=== PATIENT | female | born 1960 | race Caucasian/White ===

== ENCOUNTER 2021-06-02 05:13 | Day surgery (SDC) | payer OTHER ==
[2021-06-01 08:22] VITALS: BMI 32.1
[2021-06-02 13:50] VITALS: TEMP 98.5
[2021-06-02 14:08] VITALS: PULSE 55
[2021-06-02 14:43] VITALS: BP 103/53
== END 2021-06-02 14:43 | disposition home or self-care (01) ==
LOC: JASU-ENDO 05:13
PROVIDERS: ATTEND Internal Medicine Gastroenterology
PROC: 0DJD8ZZ Inspection of Lower Intestinal Tract, Via Natural or Artificial Opening Endoscopic (ICD-10-PCS; principal; 2021-06-02 12:00)
DX: Z12.11 Encounter for screening for malignant neoplasm of colon (principal); K57.30 Diverticulosis of large intestine without perforation or abscess without bleeding; Z83.71 Family history of colonic polyps